=== PATIENT | male | born 1945 | race Caucasian/White ===

== ENCOUNTER 2018-09-03 06:12 | Day surgery (SDC) ==
[2018-09-03] MEDS: BETADINE OPTH PREP OP PRN ×2 (06:30→07:30)
[2018-09-03] MEDS: TETRACAINE 0.5% UNIT-DOSE OP PRN ×2 (06:30→07:30)
[2018-09-03] MEDS: CYCLOGYL 2% OPTH OP PRN ×3 (06:31→06:41)
[2018-09-03] MEDS ORDERED: ZOFRAN 4 MG/2 ML IVP ONE (06:38)
[2018-09-03] MEDS ORDERED: LIDOCAINE 1% 20 ML MDV ID STA (06:38)
[2018-09-03] MEDS ORDERED: BRIMONIDINE TARTRATE 0.2% OPTH SOL OP PRN (06:38)
[2018-09-03] MEDS ORDERED: DEX-MOXI-KETOR OPTH INJ 1/0.5/0.4 MG/ML IO ONE (06:38)
[2018-09-03] MEDS ORDERED: BSS WITH EPINEPHRINE OP ONE (06:38)
[2018-09-03] MEDS ORDERED: LIDOCAINE 1%/PHENYLEPHRINE 1.5% BSS (SURGERY) INTRAOCULA ONE (06:38)
[2018-09-03 06:41] VITALS: TEMP 98.5
[2018-09-03] MEDS ORDERED: SUBLIMAZE ONE (07:28)
[2018-09-03] MEDS ORDERED: ZOFRAN 4 MG/2 ML ONE (07:28)
[2018-09-03] MEDS ORDERED: VERSED ONE (07:28)
[2018-09-05 15:10] VITALS: BP 121/78
== END 2018-09-03 08:20 | disposition home or self-care (01) ==
LOC: SURG 06:12
PROVIDERS: ATTEND Ophthalmology
DX: H25.812 Combined forms of age-related cataract, left eye (principal)

== ENCOUNTER 2018-09-17 06:47 | Day surgery (SDC) ==
[2018-09-17] MEDS: BETADINE OPTH PREP OP PRN ×3 (07:05→07:36)
[2018-09-17] MEDS: TETRACAINE 0.5% UNIT-DOSE OP PRN ×3 (07:05→07:36)
[2018-09-17] MEDS: CYCLOGYL 2% OPTH OP PRN ×6 (07:05→07:45)
[2018-09-17] MEDS ORDERED: LIDOCAINE 1%/PHENYLEPHRINE 1.5% BSS (SURGERY) INTRAOCULA ONE (07:26)
[2018-09-17] MEDS ORDERED: LIDOCAINE 1% 20 ML MDV ID STA (07:26)
[2018-09-17] MEDS ORDERED: BRIMONIDINE TARTRATE 0.2% OPTH SOL OP PRN (07:26)
[2018-09-17] MEDS ORDERED: DEX-MOXI-KETOR OPTH INJ 1/0.5/0.4 MG/ML IO ONE (07:26)
[2018-09-17] MEDS ORDERED: BSS WITH EPINEPHRINE OP ONE (07:26)
[2018-09-17] MEDS ORDERED: ZOFRAN 4 MG/2 ML IVP ONE (07:26)
[2018-09-17] MEDS ORDERED: VERSED ONE (08:00)
[2018-09-17] MEDS ORDERED: SUBLIMAZE ONE (08:00)
[2018-09-17] MEDS ORDERED: ZOFRAN 4 MG/2 ML ONE (08:00)
[2018-09-17 14:17] VITALS: BP 138/59
== END 2018-09-17 08:55 | disposition home or self-care (01) ==
LOC: SURG 06:47
PROVIDERS: ATTEND Ophthalmology
DX: H25.811 Combined forms of age-related cataract, right eye (principal)

== ENCOUNTER 2022-06-02 11:29 | Inpatient (IN) ==
[2022-06-02] MEDS ORDERED: TYLENOL PO PRN (14:11)
[2022-06-02] MEDS ORDERED: ATROPINE SULFATE PFS IVP PRN (14:11)
[2022-06-02] MEDS ORDERED: NITROSTAT SL PRN (14:11)
[2022-06-02 14:42] LABS: BASOPHILS # (AUTO) 0.1 K/uL (0-0.2); BASOPHILS % (AUTO) 0.6 % (0.0-3.0); EOSINOPHILS # (AUTO) 0.6 K/ul (0.0-0.7); HEMATOCRIT 45.8 % (42.0-52.0); HEMOGLOBIN 14.9 g/dl (14.0-18.0); IMMATURE GRANULOCYTE % (AUTO) 0.3 % (0.0-5.0); LYMPHOCYTES # (AUTO) 3.1 K/uL (0.60-3.4); LYMPHOCYTES % (AUTO) 32.4 (10.0-50.0); MEAN CORPUSCULAR HEMOGLOBIN 29.2 pg (27.0-31.0); MEAN CORPUSCULAR HGB CONC 32.5 (31.8-35.4); MEAN CORPUSCULAR VOLUME 89.8 fl (80.0-94.0); MONOCYTES # (AUTO) 0.6 K/uL (0.4-2.0); MONOCYTES % (AUTO) 6.6 (0-10); NEUTROPHILS # (AUTO) 5.2 K/ul (2.0-6.9); NEUTROPHILS % (AUTO) 54.1 % (42.2-75.2); PLATELET COUNT 236 10^3/uL (140-440); WHITE BLOOD COUNT 9.64 K/ul (4.2-10.2)
[2022-06-02 14:50] LABS: ALBUMIN 4.4 g/dL (3.5-5.0); BILIRUBIN,TOTAL 0.6 mg/dL (0.2-1.3); CALCIUM 9.3 mg/dL (8.4-10.2); CREATININE 1.4 mg/dL (0.60-1.10); POTASSIUM 4.1 mmol/L (3.5-5.1); TOTAL PROTEIN 7.5 g/dL (6.3-8.2)
--- NOTE | 2022-06-02 15:28 | DI ---
EXAM: Frontal chest HISTORY: Hypertension, shortness of breath FINDINGS: No comparison. Heart size is approaching upper limit normal. Probable aortic atheroscler osis. No acute infiltrates are seen. No vascular congestion. There is no consolidation, visible pl eural fluid or pneumothorax. Bones reveal no acute abnormality. IMPRESSION: Prominent heart size. No acute cardiopulmonary process.
[2022-06-02 15:32] LABS: ERYTHROCYTE SEDIMENTATION RATE 7 mm/hr (0-15)
[2022-06-02 15:43] LABS: CREATINE KINASE 241.2 U/L (55-170)
--- NOTE | 2022-06-02 16:07 | CT ---
EXAM: CT scan of the head without contrast HISTORY: syncope TECHNIQUE: Imaging of the head was performed without contrast. 5 mm thin axial images and coronal a nd sagittal images were obtained. FINDINGS: The ortiz-white interface appears normal. The lateral ventricles and cortical sulci are no rmal. Basal cisterns are patent. The mastoid air cells are clear. There is mucosal thickening seen within the maxillary sinuses. IMPRESSION: No acute intracranial abnormalities are seen. Chronic sinusitis. All CT scans are performed using dose optimization techniques as appropriate to the performed exam an d include at least one of the following: Automated exposure control, adjustment of the mA and/or kV according t o size, and the use of iterative reconstruction technique.
--- NOTE | 2022-06-02 16:12 | US ---
EXAM: ULTRASOUND CAROTID DUPLEX, BILATERAL HISTORY: Syncope FINDINGS: Mendoza-scale ultrasound, color Doppler and spectral analysis was performed. Velocities are in meters per second. By mendoza scale and color Doppler imaging, there were regions of heterogeneous plaque formation identif ied within the carotid bulbs and internal carotid arteries. These regions of plaque appeared to brisa in less than 50% vessel diameter. RIGHT: External carotid artery peak systolic velocity: 1.2 Common carotid artery peak systolic velocity/end diastolic velocity: 0.78/0.12 Internal carotid artery peak systolic velocity: 0.94 ICA/CCA peak systolic velocity ratio: 1.2 ICA end diastolic velocity: 0.26 LEFT: External carotid artery peak systolic velocity: 1.38 Common carotid artery peak systolic velocity/end diastolic velocity: 0.86/0.18 Internal carotid artery peak systolic velocity: 1.18 ICA/CCA peak systolic velocity ratio: 1.4 ICA end diastolic velocity: 0.38 The right and left vertebral arteries were antegrade. IMPRESSION: 1. By mendoza scale and color Doppler imaging, there were regions of heterogeneous plaque formation byron ntified within the carotid bulbs and internal carotid arteries. These regions of plaque appeared to remain less than 50% vessel diameter. 2. Internal carotid artery peak systolic velocities and ICA/CCA peak systolic velocity ratios indica te no hemodynamically significant stenosis bilaterally. 3. Both vertebral arteries were antegrade.
[2022-06-02 16:21] VITALS: BMI 32.5
[2022-06-02 16:24] LABS: TROPONIN I < 0.012 ng/ml (0.0000-0.120)
[2022-06-02 19:51] LABS: BILIRUBIN,URINE Negative (NEGATIVE); CLARITY,URINE Clear (CLEAR); COLOR,URINE Yellow (YELLOW); GLUCOSE, URINE (UA) Trace (NEGATIVE); KETONES,URINE Negative (NEGATIVE); LEUKOCYTE ESTERASE ,URINE Negative (NEGATIVE); NITRITE,URINE Negative (NEGATIVE); PH,URINE 5.5 (5-9); PROTEIN,URINE Negative (NEGATIVE); URINE, BLOOD Trace-intact (NEGATIVE); UROBILINOGEN,URINE 0.2 (0.2)
[2022-06-02 19:57] LABS: SQUAMOUS EPITHELIAL CELL,UR NOT PRESENT (0-5)
[2022-06-02 19:58] LABS: URINE RBC, MICROSCOPIC 0-2 (0-2)
[2022-06-02] MEDS: NORVASC PO SCH (21:24)
[2022-06-02 22:34] LABS: CREATINE KINASE 182.6 U/L (55-170)
[2022-06-02 22:51] LABS: TROPONIN I < 0.012 ng/ml (0.0000-0.120)
[2022-06-03 05:40] LABS: BASOPHILS % (AUTO) 0.5 % (0.0-3.0); EOSINOPHILS # (AUTO) 0.7 K/ul (0.0-0.7); EOSINOPHILS % (AUTO) 8.7 % (0.0-7.0); HEMATOCRIT 43.9 % (42.0-52.0); HEMOGLOBIN 14.4 g/dl (14.0-18.0); IMMATURE GRANULOCYTE % (AUTO) 0.4 % (0.0-5.0); LYMPHOCYTES # (AUTO) 2.6 K/uL (0.60-3.4); LYMPHOCYTES % (AUTO) 30.7 (10.0-50.0); MEAN CORPUSCULAR HEMOGLOBIN 29.2 pg (27.0-31.0); MEAN CORPUSCULAR HGB CONC 32.8 (31.8-35.4); MONOCYTES # (AUTO) 0.6 K/uL (0.4-2.0); MONOCYTES % (AUTO) 6.5 (0-10); NEUTROPHILS # (AUTO) 4.5 K/ul (2.0-6.9); NEUTROPHILS % (AUTO) 53.2 % (42.2-75.2); PLATELET COUNT 214 10^3/uL (140-440); RDW COEFFICIENT OF VARIATION 12.9 % (11.6-14.8); RED BLOOD COUNT 4.93 10^6/ul (4.70-6.10); WHITE BLOOD COUNT 8.49 K/ul (4.2-10.2)
[2022-06-03 05:52] LABS: ALANINE AMINOTRANSFERASE 19.3 U/L (0-50); ALBUMIN 3.87 g/dL (3.5-5.0); ASPARTATE AMINO TRANSFERASE 21.8 U/L (17-59); BILIRUBIN,TOTAL 0.65 mg/dL (0.2-1.3); BLOOD UREA NITROGEN 18.7 mg/dL (9-20); CALCIUM 9.11 mg/dL (8.4-10.2); CARBON DIOXIDE 27.6 mmol/L (22-30.0); CHLORIDE 104.9 mmol/L (98-107); CREATININE 1.05 mg/dL (0.60-1.10); GLUCOSE 109.7 mg/dL (74-106); POTASSIUM 3.95 mmol/L (3.5-5.1); SODIUM 139.2 mmol/L (134.5-145); TOTAL PROTEIN 6.91 g/dL (6.3-8.2)
[2022-06-03] MEDS: COZAAR PO SCH (08:26)
[2022-06-03] MEDS: ASPIRIN CHEWABLE PO SCH (08:26)
[2022-06-03] MEDS: ZIAC 5-6.25 MG PO SCH (08:26)
[2022-06-03] MEDS: CLARITIN PO SCH (08:27)
[2022-06-03] MEDS: NORVASC PO SCH ×2 (08:27→20:37)
[2022-06-04 05:56] VITALS: BP 128/78; TEMP 97.8
[2022-06-04] MEDS: CLARITIN PO SCH (08:30)
[2022-06-04] MEDS: NORVASC PO SCH (08:30)
[2022-06-04] MEDS: ASPIRIN CHEWABLE PO SCH (08:30)
[2022-06-04] MEDS: ZIAC 5-6.25 MG PO SCH (08:30)
[2022-06-04] MEDS: COZAAR PO SCH (08:30)
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
--- NOTE | 2022-06-06 11:18 | PN ---
06/02/22: Level 5 06/03/22: Intermediate 06/04/22: D as in discharge MTDD
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
== END 2022-06-04 13:45 | disposition home or self-care (01) | DRG 312 ==
LOC: LAB 11:29 → MEDSURG A 13:36
PROVIDERS: ADMIT Internal Medicine; ATTEND Internal Medicine
DX: I10 Essential (primary) hypertension; R55 Syncope and collapse; Z79.899 Other long term (current) drug therapy; Z90.5 Acquired absence of kidney; Z68.33 Body mass index [BMI] 33.0-33.9, adult; K21.9 Gastro-esophageal reflux disease without esophagitis; Z79.82 Long term (current) use of aspirin; N18.2 Chronic kidney disease, stage 2 (mild); N52.9 Male erectile dysfunction, unspecified; I42.2 Other hypertrophic cardiomyopathy; R51.0 Headache with orthostatic component, not elsewhere classified; Z51.81 Encounter for therapeutic drug level monitoring